=== PATIENT | female | born 1980 | race Caucasian/White ===

== ENCOUNTER 2017-03-16 17:56 | Emergency (ER) | payer OTHER | END 2017-03-16 21:45 | disposition home or self-care (01) | LOC: ER 17:56 | DX: T63.441A Toxic effect of venom of bees, accidental (unintentional), initial encounter (principal); T78.2XXA Anaphylactic shock, unspecified, initial encounter; Z88.0 Allergy status to penicillin; Z88.1 Allergy status to other antibiotic agents; Z88.2 Allergy status to sulfonamides; Z88.5 Allergy status to narcotic agent; Z88.8 Allergy status to other drugs, medicaments and biological substances | CPT/HCPCS: 96361; 96374; 96375; J0171; J1200 ==